=== PATIENT | male | born 1960 | race Caucasian/White ===

== ENCOUNTER 2019-05-01 08:03 | Day surgery (SDC) | payer MEDICARE ==
[2019-05-01] MEDS ORDERED: LIDOCAINE 2% MDV (20MG/ML) 20ML VIAL IV ONE (08:04)
[2019-05-01] MEDS ORDERED: PROPOFOL 10 MG/ML VIAL IV ONE (08:04)
--- NOTE | 2019-05-08 10:51 | Operative Note ---
SURGEON: Tony Raza MD OPERATION: COLONOSCOPY. INDICATIONS: This is a 58-year-old male with history of colon polyps. Last colonoscopy was 6 years ago. He presented for colonoscopy. POSTOPERATIVE DIAGNOSES: 1. Scattered diverticulosis involving the ascending colon and transverse colon. 2. Normal ileocolonic anastomosis in the sigmoid colon. 3. Poor bowel preparation. ANESTHESIA: Sedation is per Anesthesia. Pulse oximetry was monitored throughout the procedure to maintain O2 saturation of 90% or greater. Supplemental oxygen was administered via nasal cannula. Cardiac and vital signs were monitored throughout the duration of the procedure, and they were stable. The procedure of colonoscopy and risks and alternatives of the procedure, including the risk of bleeding and perforation, among others, were explained to the patient who voiced understanding and agreed to have the procedure done. Physical examination was performed, and the patient was found stable for sedation. PROCEDURE: The patient was placed in the left lateral position. Sedation was initiated. A digital rectal exam was performed and showed some mild external hemorrhoids with no palpable rectal masses. An Olympus PCF-180AL colonoscope was then inserted into the rectum under direct visualization. It was advanced to the cecum without difficulty. The ileocecal valve and appendiceal orifice were identified and photographed. The colonic mucosa was carefully examined upon introduction of the colonoscope. There were scattered diverticula noted in the ascending colon and the transverse colon. In the descending colon was an ileocolonic anastomosis that appeared normal. The bowel preparation, however, was poor and cannot exclude any significant small lesions. However, there were no gross lesions noted. The colonoscope was then withdrawn while carefully examining the colonic mucosal surfaces. No other lesions were noted. In the rectum, retroflexion was performed and grade 1 internal hemorrhoids were noted. The colonoscope was then withdrawn and the procedure was terminated. The patient tolerated the procedure well without any immediate complications. The patient remained with stable vital signs and was transferred to the recovery room. RECOMMENDATIONS: 1. The patient should be on a high-fiber diet. 2. The patient is to have a repeat colonoscopy in a year with 2-day bowel preparation. Thank you for allowing me to participate in the care of your patient. ISAMAR
== END 2019-05-01 09:50 | disposition home or self-care (01) ==
LOC: HOP 08:03
PROVIDERS: ATTEND Internal Medicine Gastroenterology
DX: Z12.11 Encounter for screening for malignant neoplasm of colon (principal); K57.30 Diverticulosis of large intestine without perforation or abscess without bleeding; I10 Essential (primary) hypertension; E11.9 Type 2 diabetes mellitus without complications; T88.4XXD Failed or difficult intubation, subsequent encounter; Z91.19 Patient's noncompliance with other medical treatment and regimen